=== PATIENT | male | born 1960 | race Caucasian/White ===

== ENCOUNTER 2019-04-30 15:55 | Emergency (ER) | payer MEDICAID ==
[~2019-04-30] VITALS: Ht 177.8 cm; Wt 72.7 kg
[2019-04-30] MEDS ORDERED: LIDOCAINE 1%/EPI 1:200,000/PF 10 ML VIAL INJ ONE (18:00)
[2019-04-30] MEDS ORDERED: IBUPROFEN 600 MG TABLET PO ONE (18:00)
[2019-04-30 19:17] VITALS: BP 125/84
== END 2019-04-30 19:20 | disposition home or self-care (01) ==
LOC: EMS 15:57
DX: S01.511A Laceration without foreign body of lip, initial encounter (principal); Y04.2XXA Assault by strike against or bumped into by another person, initial encounter; Y93.89 Activity, other specified; Y92.89 Other specified places as the place of occurrence of the external cause; Y99.8 Other external cause status
CPT/HCPCS: 12011; 99283; J3490